=== PATIENT | male | born 1960 | race African-American/Black ===

== ENCOUNTER 2016-06-18 07:26 | Emergency (ER) | payer SELFPAY ==
[2016-06-18] MEDS ORDERED: Sulfameth/Trimethoprim DS 800-160mg TAB ONE (07:46)
== END 2016-06-18 07:47 | disposition home or self-care (01) ==
LOC: BURERS 07:26
DX: L73.9 Follicular disorder, unspecified (principal); I10 Essential (primary) hypertension; F17.210 Nicotine dependence, cigarettes, uncomplicated
CPT/HCPCS: 99282

== ENCOUNTER 2016-12-24 10:16 | Emergency (ER) | payer SELFPAY | END 2016-12-24 10:41 | disposition home or self-care (01) | LOC: BURERS 10:16 | DX: L98.8 Other specified disorders of the skin and subcutaneous tissue (principal); I10 Essential (primary) hypertension; F17.210 Nicotine dependence, cigarettes, uncomplicated | CPT/HCPCS: 99282 ==

== ENCOUNTER 2018-03-03 05:43 | Emergency (ER) | payer SELFPAY ==
[2018-03-03] MEDS ORDERED: Mag-Al Plus 1200 MG/1200 MG/120 MG/30 ML UDCUP ONE (06:09)
[2018-03-03] MEDS ORDERED: Lidocaine Viscous Sol 2% 15 ml UD Cup ONE (06:09)
== END 2018-03-03 06:33 | disposition home or self-care (01) ==
LOC: BURERS 05:43
DX: K21.9 Gastro-esophageal reflux disease without esophagitis (principal); I10 Essential (primary) hypertension; F17.210 Nicotine dependence, cigarettes, uncomplicated; Z79.84 Long term (current) use of oral hypoglycemic drugs; Z79.899 Other long term (current) drug therapy
CPT/HCPCS: 93005

== ENCOUNTER 2018-07-08 08:29 | Emergency (ER) | payer OTHER, SELFPAY ==
[2018-07-08] MEDS ORDERED: Mag-Al Plus 1200 MG/1200 MG/120 MG/30 ML UDCUP ONE (09:05)
[2018-07-08] MEDS ORDERED: Lidocaine Viscous Sol 2% 15 ml UD Cup ONE (09:05)
[2018-07-08 09:18] LABS: ALT (SGPT) 22 U/L (8-55); AST (SGOT) 24 U/L (5-34); Albumin 4.4 g/dL (3.5-5.0); Alkaline Phosphatase 67 U/L (40-150); Anion Gap 15 mmol/L (10-20); BUN (Urea Nitrogen) 8 mg/dL (8.4-25.7); Bilirubin, Total 0.7 mg/dL (0.2-1.2); Calc. Creatinine Clearance 0 mL/min (70-130); Calcium 9.8 mg/dL (7.8-10.44); Carbon Dioxide 23 mmol/L (22-29); Chloride 105 mmol/L (98-107); Estimated GFR-MDRD Greater than 90; Globulin 3.2 g/dL (2.4-3.5); Glucose 98 mg/dL (70-105); Lipase 96 U/L (8-78); Potassium 3.8 mmol/L (3.5-5.1); Protein, Total 7.6 g/dL (6.0-8.3); Sodium 139 mmol/L (136-145)
[2018-07-08 09:45] LABS: Eosinophils 1 % (0-10); Hemoglobin 15.5 g/dL (14.0-18.0); Lymphocytes 33 % (21-51); MDiff Complete? YES; Mean Corpuscular HGB CONC 32.6 g/dL (32.0-36.0); Mean Corpuscular Hemoglobin 31.8 pg (27.0-31.0); Mean Corpuscular Volume 97.5 fL (78.0-98.0); Monocytes 5 % (0-10); Neutrophil 60 % (42-75); Platelet Count 202 thou/uL (130-400); Platelet Morphology Comment Appears Adequate; RBC Distribution Width 11.9 % (11.5-14.5); RBC Morphology Normal; Reactive Lymphocytes 1 % (0-10); Red Blood Cell (RBC) Count 4.87 mill/uL (4.70-6.10); White Blood Cell (WBC) Count 6.4 thou/uL (4.8-10.8)
== END 2018-07-08 10:00 | disposition home or self-care (01) ==
LOC: BURERS 08:29
DX: K21.9 Gastro-esophageal reflux disease without esophagitis (principal); I10 Essential (primary) hypertension; F17.210 Nicotine dependence, cigarettes, uncomplicated
CPT/HCPCS: 80053; 83690; 84484; 85025

== ENCOUNTER 2019-05-06 02:18 | Emergency (ER) | payer OTHER, SELFPAY | END 2019-05-06 02:55 | disposition home or self-care (01) | LOC: BURERS 02:18 | DX: L73.9 Follicular disorder, unspecified (principal); K21.9 Gastro-esophageal reflux disease without esophagitis; I10 Essential (primary) hypertension; F17.210 Nicotine dependence, cigarettes, uncomplicated | CPT/HCPCS: 99282 ==

== ENCOUNTER 2019-08-26 14:10 | Emergency (ER) | payer SELFPAY ==
[2019-08-26] MEDS ORDERED: Lidocaine 2% w/ Epi 1:200K 10 ML VIAL ONE (14:27)
[2019-08-26] MEDS ORDERED: Adacel (T-DAP) 0.5 ML SYRINGE ONE (14:34)
[2019-08-26] MEDS ORDERED: Bacitracin 1 PK ONE (14:49)
== END 2019-08-26 14:54 | disposition home or self-care (01) ==
LOC: BURERS 14:10
DX: S01.81XA Laceration without foreign body of other part of head, initial encounter (principal); K21.9 Gastro-esophageal reflux disease without esophagitis; I10 Essential (primary) hypertension; E11.9 Type 2 diabetes mellitus without complications; F17.210 Nicotine dependence, cigarettes, uncomplicated; Z23 Encounter for immunization; W20.8XXA Other cause of strike by thrown, projected or falling object, initial encounter
CPT/HCPCS: 12011; 36416; 90471; 90715

== ENCOUNTER 2020-06-24 06:42 | Emergency (ER) | payer SELFPAY | END 2020-06-24 07:00 | disposition home or self-care (01) | LOC: BURERS 06:42 | DX: L73.9 Follicular disorder, unspecified (principal); I10 Essential (primary) hypertension; K21.9 Gastro-esophageal reflux disease without esophagitis; E11.9 Type 2 diabetes mellitus without complications; F17.210 Nicotine dependence, cigarettes, uncomplicated | CPT/HCPCS: 99282 ==

== ENCOUNTER 2021-06-06 07:19 | Emergency (ER) | payer OTHER, SELFPAY ==
[2021-06-06] MEDS ORDERED: Iopamidol 370 76% 100 ML VIAL FS ONE (07:20)
[2021-06-06] MEDS ORDERED: Aspirin Chewable 81 MG TAB ONE (07:42)
[2021-06-06] MEDS ORDERED: Nitroglycerin 0.4 MG TAB 1 EACH ONE (07:42)
[2021-06-06 07:51] LABS: #Lymphocytes 1.5 thou/uL (1.20-3.40); #Monocytes 0.4 thou/uL (0.11-0.59); %Basophils 0.7 % (0.0-1.0); %Eosinophils 0.5 % (0.0-10.0); %Lymphocytes 30.5 % (21.0-51.0); %Monocytes 7.4 % (0.0-10.0); %Neutrophils 60.9 % (42.0-75.0); Hemoglobin 16.2 g/dL (14.0-18.0); Mean Corpuscular HGB CONC 34.3 g/dL (32.0-36.0); Mean Corpuscular Hemoglobin 33.9 pg (27.0-31.0); Mean Corpuscular Volume 98.9 fL (78.0-98.0); Mean Platelet Volume 6.7 fL (7.4-10.4); Platelet Count 212 thou/uL (130-400); RBC Distribution Width 12.1 % (11.5-14.5); Red Blood Cell (RBC) Count 4.78 mill/uL (4.70-6.10)
[2021-06-06 08:04] LABS: ALT (SGPT) 23 U/L (8-55); AST (SGOT) 20 U/L (5-34); Albumin 4.1 g/dL (3.5-5.0); Alkaline Phosphatase 62 U/L (40-110); Anion Gap 15 mmol/L (10-20); BUN (Urea Nitrogen) 5 mg/dL (8.4-25.7); Bilirubin, Total 1.1 mg/dL (0.2-1.2); Calc. Creatinine Clearance 0 mL/min (70-130); Calcium 9.3 mg/dL (7.8-10.44); Carbon Dioxide 28 mmol/L (22-29); Chloride 102 mmol/L (98-107); Glucose 100 mg/dL (70-105); Potassium 3.5 mmol/L (3.5-5.1); Sodium 141 mmol/L (136-145)
[2021-06-06] MEDS ORDERED: Morphine 4 MG/ML VIAL ONE ×2 (08:47→10:04)
[2021-06-06] MEDS ORDERED: Ondansetron PF 4 MG/2 ML Vial ONE (08:48)
[2021-06-06 15:55] LABS: Globulin 3.2 g/dL (2.4-3.5); Protein, Total 7.3 g/dL (6.0-8.3)
[2021-06-06 21:50] LABS: SARS-CoV-2 PCR by NAA Not Detected (NotDetected)
== END 2021-06-06 10:16 | disposition short-term general hospital (02) ==
LOC: BURERS 07:19
DX: K85.90 Acute pancreatitis without necrosis or infection, unspecified (principal); R07.9 Chest pain, unspecified; R00.1 Bradycardia, unspecified; I10 Essential (primary) hypertension; E11.9 Type 2 diabetes mellitus without complications; K21.9 Gastro-esophageal reflux disease without esophagitis; F17.210 Nicotine dependence, cigarettes, uncomplicated; Z20.822 Contact with and (suspected) exposure to COVID-19; Z87.19 Personal history of other diseases of the digestive system
CPT/HCPCS: 36415; 71045; 74177; 80053; 83690; 84484; 85025; 85379; 93005; 96374; 96375; 96376; J2270; J2405; Q9967; U0003; U0005

== ENCOUNTER 2025-03-01 00:50 | Emergency (ER) | payer OTHER ==
[2025-03-01] MEDS ORDERED: Acetaminophen 500 MG TAB ONE (01:12)
[2025-03-01] MEDS ORDERED: Ibuprofen 200 MG TAB ONE (01:12)
[2025-03-01] MEDS ORDERED: Amoxicillin/Potassium Clav 875 MG TAB ONE (01:50)
== END 2025-03-01 03:11 ==
LOC: EEVIPCON 00:50 → BURERS 00:50
DX: S02.31XA Fracture of orbital floor, right side, initial encounter for closed fracture (principal); S02.40CA Maxillary fracture, right side, initial encounter for closed fracture; S02.2XXA Fracture of nasal bones, initial encounter for closed fracture; I10 Essential (primary) hypertension; F17.210 Nicotine dependence, cigarettes, uncomplicated; Y04.2XXA Assault by strike against or bumped into by another person, initial encounter
CPT/HCPCS: 12011; 70486